=== PATIENT | female | born 1995 | race African-American/Black ===

== ENCOUNTER 2017-11-26 12:31 | Emergency (ER) | payer BC, OTHER ==
[~2017-11-26] VITALS: Ht 175.3 cm; Wt 67.2 kg
[~2017-11-26 12:31] MED LIST: DEPO400I IM; PERC5TAB12 PO
[2017-11-26 12:35] VITALS: BP 137/79; PULSE 111; RESP 20; TEMP 99.3; O2SAT 100
[2017-11-26 12:56] LABS: BILIRUBIN, URINE NEG (NEG); BLOOD, URINE MOD (NEG); GLUCOSE,URINE NEG (NEG); KETONE, URINE NEG (NEG); NITRITE,URINE NEG (NEG); PH, URINE 6.5 (5.0-8.5); URINE COLOR YELLOW (YELLW/STRAW); URINE LEUKOCYTE ESTERASE NEG (NEG)
[2017-11-26 13:14] LABS: WBC, URINE 0-2 /hpf (0-5)
[2017-11-26 13:15] LABS: BACTERIA, URINE RARE /hpf
--- NOTE | 2017-11-26 14:32 | PD ---
HPI Chief Complaint: Cash Crop Farmer Problem/Complaint Time Seen by Provider: 13:54 Travel History International Travel<30 days: No Contact w/Intl Traveler<30days: No Traveled to known affect area: No History of Present Illness HPI 22-year-old female came to the emergency room with history of , nausea and vomiting and spotting. Patient is not certain about her last menstrual cycle but thinks it was about 4-6 weeks prior. Patient tested positive with home test about 4-5 days ago. She says she has been spotting for 1 week but it slowly getting customer development manager. She has been unable to drink much fluid given her nausea and vomiting. Patient is A1. Vital signs are stable. She has not seen any OB or had any ultrasound. Patient was tachycardic in triage. She is otherwise a healthy person. No pelvic pain or cramps. PFSH Past Medical History Narrative Medical List of her past medical, surgical, social and family history is reviewed from the nursing note. Autoimmune Disease: No Anxiety: No Depression: No Cardiovascular Problems: No Developmental Delay: No Diminished Hearing: No Diverticulitis: Yes Gastrointestinal Disorders: Yes Genitourinary: Yes (ovarian cyst) Musculoskeletal: No Neurologic: No Psychiatric: Yes Respiratory: No Immunizations Current: Yes Sickle Cell Disease: No Tetanus Vaccination: > 5 Years Influenza Vaccination: Yes ?: LMP: SPOTTING NOW : 2 Para: 0 Miscarriage: 1 : 0 Past Surgical History Pacemaker: No Other Surgery: Yes (exploratory gi, colonoscopy) Social History Alcohol Use: No Tobacco Use: No Substance Use: No Allergies-Medications (Allergen,Severity, Reaction): Coded Allergies: No Known Allergies (Unverified Adverse Reaction, Unknown, 11/26/17) Comments No known drug allergies. Reported Meds & Prescriptions Reported Meds & Active Scripts Active ( Vit-Ferrous Fumarate) 27 Mg Iron-1 Mg Tab 1 Tab PO DAILY Zofran Odt (Ondansetron Odt) 4 Mg Tab 4 Mg SL Q6HR PRN Narrative Medication List of her home medications reviewed from the nursing note. Review of Systems Except as stated in HPI: all other systems reviewed are Neg Gastrointestinal: Positive: Nausea, Vomiting Genitourinary: Positive: Vaginal Bleeding Physical Exam Narrative GENERAL: Awake, alert, moderate distress SKIN: Focused skin assessment warm/dry. HEAD: Atraumatic. Normocephalic. EYES: Pupils equal and round. No scleral icterus. No injection or drainage. ENT: No nasal bleeding or discharge. Mucous membranes pink and moist. NECK: Trachea midline. No JVD. CARDIOVASCULAR: Regular rate and rhythm. No murmur appreciated. RESPIRATORY: No accessory muscle use. Clear to auscultation. Breath sounds equal bilaterally. GASTROINTESTINAL: Abdomen soft, non-tender, nondistended. Hepatic and splenic margins not palpable. MUSCULOSKELETAL: No obvious deformities. No clubbing. No cyanosis. No edema. NEUROLOGICAL: Awake and alert. No obvious cranial nerve deficits. Motor grossly within normal limits. Normal speech. PSYCHIATRIC: Appropriate mood and affect; insight and judgment normal. Data Data Last Documented VS Vital Signs Date Time Temp Pulse Resp B/P (MAP) Pulse Ox O2 Delivery O2 Flow Rate FiO2 11/26/17 18:49 86 16 127/65 (85) 99 11/26/17 17:39 Room Air 11/26/17 12:35 99.3 Orders Orders Urinalysis - C+S If Indicated (11/26/17 12:39) Ed Urine Pregnancytest Poc (11/26/17 12:39) Beta Hcg (Quant/Titer) (11/26/17 14:40) Complete Blood Count With Diff (11/26/17 14:40) Basic Metabolic Panel (Bmp) (11/26/17 14:40) Sodium Chlor 0.9% 1000 Ml Inj (Ns 1000 M (11/26/17 14:45) Metoclopramide Inj (Reglan Inj) (11/26/17 14:45) Type And Screen (11/26/17 15:13) Potassium Chloride Eff (K-Lyte Cl Eff) (11/26/17 16:30) Ed Poc Ultrasound (11/26/17 ) Us Pelvis (Ques Pr/Ect)W Trans (11/26/17 ) Ed Discharge Order (11/26/17 18:37) Labs Laboratory Tests Test 11/26/17 12:42 11/26/17 14:50 Urine Collection Type CLEAN CATCH Urine Color YELLOW Urine Turbidity CLEAR Urine pH 6.5 Urine Specific [place] LESS/EQUAL 1.005 Urine Protein NEG mg/dL Urine Glucose (UA) NEG mg/dL Urine Ketones NEG mg/dL Urine Occult Blood MOD Urine Nitrite NEG Urine Bilirubin NEG Urine Urobilinogen 0.2 MG/DL Urine Leukocyte Esterase NEG Urine WBC 0-2 /hpf Urine Squamous Epithelial Cells 6-8 /hpf Urine Bacteria RARE /hpf Microscopic Urinalysis Comment CULT NOT INDICATED White Blood Count 14.2 TH/MM3 Red Blood Count 4.43 MIL/MM3 Hemoglobin 14.0 GM/DL Hematocrit 41.3 % Mean Corpuscular Volume 93.2 FL Mean Corpuscular Hemoglobin 31.6 PG Mean Corpuscular Hemoglobin Concent 33.9 % Red Cell Distribution Width 13.0 % Platelet Count 255 TH/MM3 Mean Platelet Volume 9.5 FL Neutrophils (%) (Auto) 74.4 % Lymphocytes (%) (Auto) 17.1 % Monocytes (%) (Auto) 6.5 % Eosinophils (%) (Auto) 1.2 % Basophils (%) (Auto) 0.8 % Neutrophils # (Auto) 10.6 TH/MM3 Lymphocytes # (Auto) 2.4 TH/MM3 Monocytes # (Auto) 0.9 TH/MM3 Eosinophils # (Auto) 0.2 TH/MM3 Basophils # (Auto) 0.1 TH/MM3 CBC Comment DIFF FINAL Differential Comment Blood Urea Nitrogen 9 MG/DL Creatinine 0.82 MG/DL Random Glucose 88 MG/DL Calcium Level 9.1 MG/DL Sodium Level 138 MEQ/L Potassium Level 3.3 MEQ/L Chloride Level 105 MEQ/L Carbon Dioxide Level 24.4 MEQ/L Anion Gap 9 MEQ/L Estimat Glomerular Filtration Rate 105 ML/MIN Human Chorionic Gonadotropin, Quant 43245 MIU/ML [facility] Medical Decision Making Medical Screen Exam Complete: Yes Emergency Medical Condition: Yes Medical Record Reviewed: Yes Differential Diagnosis Threatened , with early gestational bleed, ectopic Narrative Course 3:33 PM awaiting for blood test results. Patient is getting IV fluid bolus and IV Reglan. 4:43 PM based on the beta hCG quant I try to perform a bedside [id number] ultrasound. I was unsuccessful in seeing a well-defined gestational sac and pole. With this beta-hCG number I expect to see both and even cardiac activity which I was unsuccessful. I have ordered a formal ultrasound. Waiting for the ultrasound to be done and resulted. Meanwhile patient has received the IV fluid and the medication and she says she feels much better. 6:38 PM ultrasound report came back. There is a gestational sac with viable fetus and heartbeat. There is a second empty gestational sac and some subchorionic hemorrhage. Based on this I am comfortable discharging her home. Procedures Procedure Narrative Emergency Department Pelvic ultrasound was performed with patient consent. The curvilinear probe was used in the transverse and sagittal views within the suprapubic region revealing no intrauterine . EKG Prior to Arrival: No Diagnosis Primary Impression: First trimester Additional Impression: Threatened Referrals: [facility] 2 days Additional Instructions: Follow-up at the OB clinic in next couple days. No vaginal intercourse no tampons or no vaginal douching until bleeding completely stops and there is a clearance from the OB. Return to ER if condition worsens any other new concerns. Take the medication as per the prescription direction. Med/Other Pt SpecificInfo: Prescription(s) given Scripts Vit-Ferrous Fumarate () 27 Mg Iron-1 Mg Tab 1 TAB PO DAILY for Nutritional Supplement, #30 TAB 0 Refills Prov: Drake Sherman MD 11/26/17 Ondansetron Odt (Zofran Odt) 4 Mg Tab 4 MG SL Q6HR Y for Nausea/Vomiting, #30 TAB 0 Refills Prov: Drake Sherman MD 11/26/17 Disposition: 01 DISCHARGE HOME Condition: Stable Drake Sherman MD Nov 26, 2017 14:32
[2017-11-26] MEDS ORDERED: METOCLOPRAMIDE HCL 10 MG/2 ML VIAL IV PUSH ONE (14:45)
[2017-11-26] MEDS ORDERED: SODIUM CHLOR 0.9% 1000 ML INJ 1,000 ML IV ONE (14:45)
[2017-11-26 15:37] LABS: CALCIUM 9.1 MG/DL (8.5-10.1)
[2017-11-26 15:38] LABS: AUTOMATED NEUTROPHIL # 10.6 TH/MM3 (1.8-7.7); BASOPHIL # 0.1 TH/MM3 (0-0.2); BASOPHIL % 0.8 % (0.0-2.0); BICARBONATE 24.4 MEQ/L (21.0-32.0); EOSINOPHIL # 0.2 TH/MM3 (0-0.4); EOSINOPHIL % 1.2 % (0.0-4.0); HEMATOCRIT 41.3 % (35.0-46.0); LYMPH % 17.1 % (9.0-44.0); LYMPHOCYTE # 2.4 TH/MM3 (1.0-4.8); MEAN CELL VOLUME 93.2 FL (80.0-100.0); MEAN CORPUSCULAR HEMOGLOBIN 31.6 PG (27.0-34.0); MEAN CORPUSCULAR HGB CONC 33.9 % (32.0-36.0); MEAN PLATELET VOLUME 9.5 FL (7.0-11.0); MONO % 6.5 % (0.0-8.0); MONOCYTE # 0.9 TH/MM3 (0-0.9); NEUT % 74.4 % (16.0-70.0); PLATELET COUNT 255 TH/MM3 (150-450); RED BLOOD COUNT 4.43 MIL/MM3 (4.00-5.30); WHITE BLOOD COUNT 14.2 TH/MM3 (4.0-11.0)
[2017-11-26 15:41] LABS: CREATININE 0.82 MG/DL (0.50-1.00)
[2017-11-26] MEDS ORDERED: POTASSIUM CHLORIDE 25 MEQ EFFERVESCENT TAB PO ONE (16:30)
[2017-11-26 17:39] VITALS: BP 115/68; PULSE 86; RESP 16; O2SAT 99
--- NOTE | 2017-11-26 18:31 | RADRPT ---
EXAM DATE: 11/26/2017 6:06 PM EDT AGE/SEX: 22 years / Female INDICATIONS: Bleeding with . CLINICAL DATA: This is the patient's subsequent encounter. Patient reports that signs and symptoms h ave been present for 1 week and indicates a pain score of 0/10. MEDICAL/SURGICAL HISTORY: . Diverticulitis. PID. Ovarian cyst. Miscarriage. Endometri osis. . Exploratory abdominal surgery. Colonoscopy. COMPARISON: No prior exams available for comparison. MEASUREMENTS: Uterus:__8.6 x 6.8 x 6.2 cm Endometrial Stripe:__>20 mm Right Ovary:__ 4.3 x 2.2 x 2.2 cm Left Ovary:__ 3.4 x 2.6 x 2.4 cm FINDINGS: Within the uterus there is a gestational sac with a pole. Gestational age is 6 weeks 2 days by crown-rump length. heart rate is 113 bpm. Positive yolk sac. There is an additional fluid collection in the endometrial cavity that measures about 3.5 x 1.7 x 1.6 cm. This has no pole and could represent an empty gestational sac. There is also a small subch orionic hemorrhage measuring about 3.4 x 1.2 x 3 cm.. Probable corpus luteum cyst left ovary. Right ovary unremarkable. Trace free fluid. CONCLUSION: 1. Viable intrauterine of 6 weeks 2 days by crown-rump length with heart rate 113 bp m. 2. Additional fluid collection adjacent to the viable that could represent an empty gestat ional sac. No second pole identified. 3. Small subchorionic hemorrhage. 4. Corpus luteum cyst left ovary. Electronically signed by: Iván Ross MD 11/26/2017 6:29 PM EDT
[2017-11-26] MEDS ORDERED: ZOFR4TAB3 SL (18:40)
[2017-11-26] MEDS ORDERED: TRICTAB PO (18:40)
[2017-11-26 18:49] VITALS: BP 127/65
== END 2017-11-26 18:52 | disposition home or self-care (01) ==
LOC: PHED 12:31
DX: O20.0 Threatened abortion (principal); O21.9 Vomiting of pregnancy, unspecified; O26.851 Spotting complicating pregnancy, first trimester; R00.0 Tachycardia, unspecified; Z3A.01 Less than 8 weeks gestation of pregnancy
CPT/HCPCS: 76700; 76817; 80048; 81001; 84702; 84703; 85025; 86850; 86900; 86901; 96361; 96374; 99284; J2765; J7030